=== PATIENT | female | born 1995 | race Caucasian/White ===

== ENCOUNTER 2016-09-14 13:36 | Inpatient (IN) | payer MEDICAID ==
[2016-09-14 14:14] LABS: APPEARANCE,URINE CLOUDY; BILIRUBIN,URINE NEGATIVE (NEGATIVE); GLUCOSE, URINE NEGATIVE (NEGATIVE); KETONES,URINE NEGATIVE (NEGATIVE); LEUKOCYTE ESTERASE,URINE SMALL (NEGATIVE); NITRITE,URINE NEGATIVE (NEGATIVE); PROTEIN,URINE 100 mg/dL (NEGATIVE); URINE SPECIFIC GRAVITY 1.013; UROBILINOGEN,URINE NEGATIVE mg/dL (<2.0)
[2016-09-14 14:38] LABS: URINE BARBITURATES SCREEN NEGATIVE; URINE METHADONE SCREEN NEGATIVE; URINE OPIATES LOW NEGATIVE; URINE PHENCYCLIDINE SCREEN NEGATIVE
[2016-09-14] MEDS ORDERED: RINGERS SOLUTION,LACTATED 1,000 ML IV PRN (15:27)
--- NOTE | 2016-09-14 16:00 | L&D Flow Sheet ---
LD Flowsheet Datetime Report Generated by CPN: 09/14/2016 16:00 Datetime: 09/14/2016 15:44 Pulse: 87 (QS system process) SpO2 (%): 99 (QS system process) Datetime: 09/14/2016 15:39 Pulse: 102 (QS system process) SpO2 (%): 97 (QS system process) Datetime: 09/14/2016 15:37 NBP Sys/Letty/Mean (mmHg): 90 (QS system process) : 53 (QS system process) : 65 (QS system process) Pulse: 90 (QS system process) IV/Blood Work: IV Started; IV Bolus Started; New IV Bag Hung (Annotations: #18 jelco in Rt FA with LR @ W?O rate for IVF bolus) (Lor Knight RN) Datetime: 09/14/2016 15:34 Pulse: 93 (QS system process) SpO2 (%): 96 (QS system process) Datetime: 09/14/2016 15:32 Monitor Interventions for UA: [place] Adjusted (Eunice Vitrano, RN) Patient Position/Activity: Right Lateral (Eunice Vitrano, RN) Datetime: 09/14/2016 15:30 Monitor Interventions for FHR: Ultrasound Adjusted (Eunice Vitrano, RN) Actions for Decelerations: Side to Side (Eunice Vitrano, RN) Communication: RN at Bedside (Eunice Vitrano, RN) Datetime: 09/14/2016 15:25 Comments: pt sitting up in bed, FHR monitor tracing maternal HR (Marcelle Kaia, RN) Datetime: 09/14/2016 15:24 Communication Comments: C.Kulkarni CNM called and informed of pt complaint, G's and P's, gestational age, SVE exam and vital signs. Order recieved to admit pt to labor and delivery (Marcelle Marti, RN) Datetime: 09/14/2016 15:22 NBP Sys/Letty/Mean (mmHg): 122 (QS system process) : 64 (QS system process) : 81 (QS system process) Pulse: 101 (QS system process) Datetime: 09/14/2016 15:21 Dilatation (cm): 5.5 (Marcelle Marti, JENNIFER) Effacement (%): 80 (Marcelle Marti RN) Station: -1 (Marcelle Marti, RN) Exam by: Justin Marti RN (Marcelle Marti, RN) Datetime: 09/14/2016 15:07 NBP Sys/Letty/Mean (mmHg): 104 (QS system process) : 55 (QS system process) : 75 (QS system process) Pulse: 86 (QS system process) Datetime: 09/14/2016 14:51 NBP Sys/Letty/Mean (mmHg): 101 (QS system process) : 61 (QS system process) : 75 (QS system process) Pulse: 100 (QS system process) Datetime: 09/14/2016 14:36 NBP Sys/Letty/Mean (mmHg): 94 (QS system process) : 51 (QS system process) : 66 (QS system process) Pulse: 99 (QS system process) Datetime: 09/14/2016 14:30 Vaginal Exam Comments: alec pad applied (Marcelle Marti RN) Datetime: 09/14/2016 14:15 Frequency (min): every 2 minutes (Marcelle Marti RN) Pain Scale: 4 (Marcelle Marti RN) Pain Presence: Intermittent (Marcelle Marti RN) Pain Type: Contraction (Marcelle Marti RN) Pain Location: Abdomen (Marcelle Marti RN) Pain Relief Measures: Comfort Measures (Marcelle Marti RN) Pain Coping: Breathing Through Contractions (Marcelle Marti RN) Dilatation (cm): 3.5 (Marcelle Marti RN) Effacement (%): 70 (Marcelle Marti RN) Station: -1 (Marcelle Marti RN) Exam by: Justin Marti RN (Marcelle Marti RN) Vaginal Bleeding: Moderate (Marcelle Marti RN) Level of Consciousness: Fully Conscious (Marcelle Marti RN) Headache: Denies (Marcelle Marti RN) Breath Sounds, Left: Clear and Equal (Marcelle Marti RN) Breath Sounds, Right: Clear and Equal (Marcelle Marti RN) Nausea/Vomiting: Denies (Marcelle Marti RN) RUQ Epigastric Pain: Denies (Marcelle Marti RN) Datetime: 09/14/2016 14:09 NBP Sys/Ltety/Mean (mmHg): 97 (QS system process) : 56 (QS system process) : 72 (QS system process) Pulse: 115 (QS system process)
[2016-09-14 16:12] LABS: ABSOLUTE LYMPHOCYTES (AUTO) 1.3 10^3/uL (0.5-4.7); ABSOLUTE MONOCYTES (AUTO) 1.3 10^3/uL (0.1-1.4); ABSOLUTE NEUT (AUTO) 10.3 10^3/uL (1.7-8.2); BASOPHILS % (AUTO) 0.1 % (0-2); EOSINOPHILS % (AUTO) 0.4 % (0-6); LYMPHOCYTES % (AUTO) 10.1 % (13-45); MEAN CORPUSCULAR HEMOGLOBIN 31.6 pg (27.0-33.4); MEAN CORPUSCULAR HGB CONC 33.2 g/dL (32.0-36.0); MEAN CORPUSCULAR VOLUME 95 fl (80-97); MONOCYTES % (AUTO) 10.1 % (3-13); RED CELL DISTRIBUTION WIDTH 13.2 % (11.5-14.0); SEGMENTED NEUTROPHILS % (AUTO) 79.3 % (42-78)
[2016-09-14] MEDS ORDERED: EPHEDRINE SULFATE INJ 50 MG/1 ML AMPULE ONE (16:52)
[2016-09-14] MEDS ORDERED: FENTANYL/BUPIVACAINE/NS/PF 200 MCG/100 ML RTUINJ EPI ONE (16:53)
[2016-09-14] MEDS ORDERED: BUPIVACAINE HCL 0.25 % INJ/PF (2.5 MG/1 ML) 30 ML VIAL ONE (16:53)
--- NOTE | 2016-09-14 17:49 | L&D Progress Notes ---
PROGRESS NOTES Datetime Report Generated by CPN: 09/14/2016 17:49 PROGRESS NOTE Impression: Normal Progression of Labor Procedures: Artificial ROM Plan: Continue Present Management Comment: expectant management MEMBRANES Membranes: Intact FETUS A FHR Category: Category I Presentation: Vertex SIGNATURE SIGNATURE: [id number] Signature: with User ID: [email or web address]
--- NOTE | 2016-09-14 18:00 | L&D Flow Sheet ---
LD Flowsheet Datetime Report Generated by CPN: 09/14/2016 18:00 Datetime: 09/14/2016 17:59 NBP Sys/Letty/Mean (mmHg): 115 (QS system process) : 58 (QS system process) : 80 (QS system process) Pulse: 103 (QS system process) LaborFlag: Antepartum (QS system process) Datetime: 09/14/2016 17:55 Pulse: 103 (QS system process) SpO2 (%): 98 (QS system process) LaborFlag: Antepartum (QS system process) Datetime: 09/14/2016 17:54 Pulse: 86 (QS system process) SpO2 (%): 94 (QS system process) LaborFlag: Antepartum (QS system process) Datetime: 09/14/2016 17:50 Pulse: 87 (QS system process) SpO2 (%): 97 (QS system process) LaborFlag: Antepartum (QS system process) Datetime: 09/14/2016 17:47 Pulse: 85 (QS system process) SpO2 (%): 93 (QS system process) LaborFlag: Antepartum (QS system process) Datetime: 09/14/2016 17:46 Pain Scale: 0 (Marcelle Kaia, RN) Pain Assessment Comments: pt resting in bed, texting on phone in no current distress (Marcelle Kaia, RN) LaborFlag: Antepartum (QS system process) Datetime: 09/14/2016 17:45 Pulse: 107 (QS system process) SpO2 (%): 97 (QS system process) LaborFlag: Antepartum (QS system process) Datetime: 09/14/2016 17:43 NBP Sys/Letty/Mean (mmHg): 126 (QS system process) : 66 (QS system process) : 88 (QS system process) Pulse: 104 (QS system process) Dilatation (cm): 8.5 (Marcelle Kaia, RN) Effacement (%): 100 (Marcelle Marti, RN) Station: 1 (Marcelle Marti, RN) Exam by: Dr. Castro (Marcelle Marti, RN) Membrane Status: Ruptured (Marcelle Marti, RN) Membranes Rupture Method: Artificial (Marcelle Marti, RN) Amniotic Fluid Color: Clear (Marcelle Kaia, RN) Amniotic Fluid Amount: Moderate (Marcelle Kaia, RN) Amniotic Fluid Odor: Normal (Marcelle Kaia, RN) LaborFlag: Antepartum (QS system process) Datetime: 09/14/2016 17:40 Pulse: 89 (QS system process) SpO2 (%): 97 (QS system process) LaborFlag: Antepartum (QS system process) Datetime: 09/14/2016 17:39 NBP Sys/Letty/Mean (mmHg): 121 (QS system process) : 63 (QS system process) : 85 (QS system process) Pulse: 92 (QS system process) LaborFlag: Antepartum (QS system process) Datetime: 09/14/2016 17:35 Pulse: 86 (QS system process) SpO2 (%): 97 (QS system process) LaborFlag: Antepartum (QS system process) Datetime: 09/14/2016 17:33 NBP Sys/Letty/Mean (mmHg): 122 (QS system process) : 59 (QS system process) : 83 (QS system process) Pulse: 86 (QS system process) LaborFlag: Antepartum (QS system process) Datetime: 09/14/2016 17:30 Pulse: 86 (QS system process) SpO2 (%): 96 (QS system process) Temperature (F): 98.2 (Marcelle Kaia, RN) Temperature (C): 36.8 (QS system process) Monitor Mode: External (Marcelle Kaia, RN) Frequency (min): 2-4 (Marcelle Kaia, RN) Quality: Moderate to Strong (Marcelle Kaia, RN) Duration (sec): 50-90 (Marcelle Kaia, RN) Resting Tone (Palpate): Relaxed (Marcelle Kaia, RN) Monitor Mode: External US (Marcelle Kaia, RN) FHR Baseline Rate : 115 (Marcelle Kaia, RN) Variability: Minimal - Undetectable to <=5 bpm (Marcelle Kaia, RN) Accelerations: None (Marcelle Kaia, RN) Decelerations: None (Marcelle Kaia, RN) LaborFlag: Antepartum (QS system process) Datetime: 09/14/2016 17:28 Pulse: 85 (QS system process) SpO2 (%): 93 (QS system process) LaborFlag: Antepartum (QS system process) Datetime: 09/14/2016 17:26 NBP Sys/Letty/Mean (mmHg): 114 (QS system process) : 82 (QS system process) : 94 (QS system process) Pulse: 65 (QS system process) LaborFlag: Antepartum (QS system process) Datetime: 09/14/2016 17:25 NBP Sys/Letty/Mean (mmHg): 116 (QS system process) : 70 (QS system process) : 86 (QS system process) Pulse: 75 (QS system process) Pulse: 78 (QS system process) SpO2 (%): 97 (QS system process) Dilatation (cm): 9.0 (Marcelle Marti RN) Effacement (%): 100 (Marcelle Marti RN) Station: 0 (Marcelle Marti RN) Exam by: A Kaia CNM (Marcelle Marti RN) Vaginal Bleeding: Normal Show (Marcelle Marti RN) LaborFlag: Antepartum (QS system process) Datetime: 09/14/2016 17:24 NBP Sys/Letty/Mean (mmHg): 115 (QS system process) : 70 (QS system process) : 86 (QS system process) Pulse: 83 (QS system process) I/O Interventions: Cisneros Cath Inserted (Marcelle Marti RN) LaborFlag: Antepartum (QS system process) Datetime: 09/14/2016 17:23 NBP Sys/Letty/Mean (mmHg): 109 (QS system process) : 62 (QS system process) : 81 (QS system process) Pulse: 59 (QS system process) Anesthesia Interventions Other: Ephedrine (Marcelle Marti RN) Anesthesia Comments: 5mg (Marcelle Marti RN) LaborFlag: Antepartum (QS system process) Datetime: 09/14/2016 17:22 NBP Sys/Letty/Mean (mmHg): 108 (QS system process) : 55 (QS system process) : 78 (QS system process) Pulse: 76 (QS system process) Patient Position/Activity: Left Lateral (Marcelle Marti RN) LaborFlag: Antepartum (QS system process) Datetime: 09/14/2016 17:21 NBP Sys/Letty/Mean (mmHg): 101 (QS system process) : 51 (QS system process) : 72 (QS system process) Pulse: 86 (QS system process) Anesthesia Interventions Other: Ephedrine (Marcelle Marti RN) Anesthesia Comments: 5mg (Marcelle Marti RN) LaborFlag: Antepartum (QS system process) Datetime: 09/14/2016 17:20 NBP Sys/Letty/Mean (mmHg): 87 (QS system process) : 52 (QS system process) : 64 (QS system process) Pulse: 96 (QS system process) Pulse: 91 (QS system process) SpO2 (%): 96 (QS system process) LaborFlag: Antepartum (QS system process) Datetime: 09/14/2016 17:19 Patient Position/Activity: Right Tilt (Marcelle Kaia, RN) Datetime: 09/14/2016 17:18 NBP Sys/Letty/Mean (mmHg): 85 (QS system process) NBP Sys/Letty/Mean (mmHg): 97 (QS system process) : 49 (QS system process) : 54 (QS system process) : 65 (QS system process) : 71 (QS system process) Pulse: 89 (QS system process) Pulse: 85 (QS system process) LaborFlag: Antepartum (QS system process) Datetime: 09/14/2016 17:16 NBP Sys/Letty/Mean (mmHg): 99 (QS system process) : 55 (QS system process) : 71 (QS system process) Pulse: 84 (QS system process) Comments: RN at bedside adjusting monitors (Marcelle Marti RN) Patient Position/Activity: Left Tilt (Marcelle Marti RN) LaborFlag: Antepartum (QS system process) Datetime: 09/14/2016 17:15 Monitor Mode: External; Palpation (Marcelle Marti RN) Frequency (min): 3-4 (Marcelle Marti RN) Quality: Moderate to Strong (Marcelle Marti RN) Duration (sec): 50-90 (Marcelle Marti, RN) Resting Tone (Palpate): Relaxed (Marcelle Marti RN) Comments: unable to determine due to pt position for epidural placement (Marcelle Marti RN) Datetime: 09/14/2016 17:14 NBP Sys/Letty/Mean (mmHg): 105 (QS system process) : 59 (QS system process) : 78 (QS system process) Pulse: 86 (QS system process) LaborFlag: Antepartum (QS system process) Datetime: 09/14/2016 17:13 NBP Sys/Letty/Mean (mmHg): 107 (QS system process) : 59 (QS system process) : 78 (QS system process) Pulse: 89 (QS system process) Pulse: 90 (QS system process) SpO2 (%): 99 (QS system process) LaborFlag: Antepartum (QS system process) Datetime: 09/14/2016 17:12 NBP Sys/Letty/Mean (mmHg): 109 (QS system process) : 58 (QS system process) : 75 (QS system process) Pulse: 105 (QS system process) LaborFlag: Antepartum (QS system process) Datetime: 09/14/2016 17:11 NBP Sys/Letty/Mean (mmHg): 91 (QS system process) : 47 (QS system process) : 67 (QS system process) Pulse: 87 (QS system process) LaborFlag: Antepartum (QS system process) Datetime: 09/14/2016 17:10 NBP Sys/Letty/Mean (mmHg): 101 (QS system process) : 54 (QS system process) : 73 (QS system process) Pulse: 87 (QS system process) LaborFlag: Antepartum (QS system process) Datetime: 09/14/2016 17:09 NBP Sys/Letty/Mean (mmHg): 115 (QS system process) : 58 (QS system process) : 80 (QS system process) Pulse: 89 (QS system process) Epidural Procedure: Cath Placed (Marcelle Marti RN) LaborFlag: Antepartum (QS system process) Datetime: 09/14/2016 17:08 Pulse: 111 (QS system process) SpO2 (%): 99 (QS system process) Procedure Verify: Correct Patient Identity; Correct Side and Site are Marked; Accurate Procedure Consent Form; Agreement on Procedure to be Done; Correct Patient Position (Marcelle Marti RN) Anesthesia Plans: Epidural (Marcelle Marti RN) Epidural Positioning: Sitting (Marcelle Marti RN) Epidural Procedure: Test Dose (Marcelle Marti RN) LaborFlag: Antepartum (QS system process) Datetime: 09/14/2016 17:06 NBP Sys/Letty/Mean (mmHg): 122 (QS system process) : 66 (QS system process) : 89 (QS system process) Pulse: 97 (QS system process) LaborFlag: Antepartum (QS system process) Datetime: 09/14/2016 17:03 Pulse: 93 (QS system process) SpO2 (%): 99 (QS system process) LaborFlag: Antepartum (QS system process) Datetime: 09/14/2016 17:00 Monitor Mode: External; Palpation (Marcelle Kaia, RN) Frequency (min): 2-3 (Marcelle Kaia, RN) Quality: Moderate (Marcelle Kaia, RN) Duration (sec): 60-90 (Marcelle Kaia, RN) Resting Tone (Palpate): Relaxed (Marcelle Kaia, RN) Monitor Mode: External US (Marcelle Kaia, RN) FHR Baseline Rate : 115 (Marcelle Kaia, RN) Variability: Moderate 6-25 bpm (Marcelle Kaia, RN) Accelerations: 15X15 (Marcelle Kaia, RN) Decelerations: None (Marcelle Kaia, RN) Datetime: 09/14/2016 16:58 Pulse: 110 (QS system process) SpO2 (%): 100 (QS system process) LaborFlag: Antepartum (QS system process) Datetime: 09/14/2016 16:57 Procedure Verify: Correct Patient Identity (Marcelle Marti RN) Anesthesia Plans: Epidural (Marcelle Marti RN) Epidural Positioning: Sitting (Marcelle Marti RN) Anesthesia Comments: Dr. Bautista at bedside (Marcelle Marti RN) Datetime: 09/14/2016 16:52 Pulse: 104 (QS system process) SpO2 (%): 97 (QS system process) LaborFlag: Antepartum (QS system process) Datetime: 09/14/2016 16:47 Pulse: 95 (QS system process) SpO2 (%): 97 (QS system process) LaborFlag: Antepartum (QS system process) Datetime: 09/14/2016 16:46 Procedure Verify: Correct Patient Identity (Marcelle Marti RN) Anesthesia Plans: Epidural (Marcelle Marti RN) Datetime: 09/14/2016 16:45 Pain Scale: 5 (Marcelle Marti RN) Pain Presence: Intermittent (Marcelle Marti RN) Pain Type: Contraction (Marcelle Marti RN) Pain Location: Abdomen (Marcelle Marti RN) Pain Relief Measures: Comfort Measures (Marcelle Marti RN) Pain Assessment Comments: pt requesting epidural, order from Ruddy Kulkarni recieved for pt to have epidural (Marcelle Marti RN) Comfort Measures: Breathing/Relaxation; Back Rub Given (Marcelle Marti RN) LaborFlag: Antepartum (QS system process) Datetime: 09/14/2016 16:42 Pulse: 95 (QS system process) SpO2 (%): 100 (QS system process) LaborFlag: Antepartum (QS system process) Datetime: 09/14/2016 16:38 Communication: RN at Bedside (Marcelle Kaia, RN) Datetime: 09/14/2016 16:37 Pulse: 54 (QS system process) SpO2 (%): 77 (QS system process) SpO2 (%): 81 (QS system process) LaborFlag: Antepartum (QS system process) Datetime: 09/14/2016 16:31 Communication: RN at Bedside (Marcelle Kaia, RN) Datetime: 09/14/2016 16:30 Monitor Mode: External (Marcelle Kaia, RN) Frequency (min): 1-3 (Marcelle Kaia, RN) Quality: Moderate (Marcelle Kaia, RN) Duration (sec): 40-80 (Marcelle Kaia, RN) Resting Tone (Palpate): Relaxed (Marcelle Kaia, RN) Monitor Mode: External US (Marcelle Kaia, RN) FHR Baseline Rate : 115 (Marcelle Kaia, RN) Variability: Moderate 6-25 bpm (Marcelle Kaia, RN) Accelerations: 15X15 (Marcelle Kaia, RN) Decelerations: Variable (Marcelle Kaia, RN) Datetime: 09/14/2016 16:25 Patient Care Comments: pt standing on the side of the bed rocking back and forth (Marcelle Kaia, RN) Datetime: 09/14/2016 16:23 I/O Interventions: Up to BR (Marcelle Kaia, RN) Datetime: 09/14/2016 16:21 Pulse: 102 (QS system process) SpO2 (%): 99 (QS system process) LaborFlag: Antepartum (QS system process) Datetime: 09/14/2016 16:17 Communication Comments: C. Kulkarni CNM at bedside (Marcelle Kaia, RN) Datetime: 09/14/2016 16:16 Pulse: 113 (QS system process) SpO2 (%): 98 (QS system process) LaborFlag: Antepartum (QS system process) Datetime: 09/14/2016 16:06 NBP Sys/Letty/Mean (mmHg): 125 (QS system process) : 69 (QS system process) : 92 (QS system process) Pulse: 88 (QS system process) LaborFlag: Antepartum (QS system process) Datetime: 09/14/2016 16:00 Monitor Mode: External; Palpation (Marcelle Kaia, RN) Frequency (min): 1-3 (Marcelle Kaia, RN) Quality: Moderate (Marcelle Kaia, RN) Duration (sec): 60-80 (Marcelle Kaia, RN) Resting Tone (Palpate): Relaxed (Marcelle Kaia, RN) Monitor Mode: External US (Marcelle Kaia, RN) FHR Baseline Rate : 120 (Marcelle Kaia, RN) Variability: Moderate 6-25 bpm (Marcelle Kaia, RN) Accelerations: 15X15 (Marcelle Kaia, RN) Decelerations: None (Marcelle Kaia, RN)
[2016-09-14] MEDS ORDERED: LIDOCAINE 1% INJ-PF (10 MG/ML) 30 ML SDV ONE (18:20)
[2016-09-14] MEDS ORDERED: OXYTOCIN/NORMAL SALINE 20 UNIT/1,000 ML RTUINJ ONE (18:20)
[2016-09-14] MEDS ORDERED: MISOPROSTOL 0.2 MG TABLET ONE (18:20)
--- NOTE | 2016-09-14 20:00 | L&D Flow Sheet ---
LD Flowsheet Datetime Report Generated by CPN: 09/14/2016 20:00 Datetime: 09/14/2016 19:43 Stage of : Recovery (Brittani Gonzalo, RN) Datetime: 09/14/2016 19:38 Stage 2 Comments: oxygen applied. left lateral tilt (Claribel Bonifacio, RN) Datetime: 09/14/2016 19:29 NBP Sys/Letty/Mean (mmHg): 127 (QS system process) : 62 (QS system process) : 84 (QS system process) Pulse: 106 (QS system process) LaborFlag: Antepartum (QS system process) Datetime: 09/14/2016 19:23 Patient Position/Activity: Left Extreme (Claribel Bonifacio, RN) Stage 2 Comments: pt. set up fopr delivery (Claribel Bonifacio, RN) Datetime: 09/14/2016 19:20 Dilatation (cm): 10.0 (Claribel Bonifacio, RN) Effacement (%): 100 (Claribel Bonifacio, RN) Station: 1 (Claribel Bonifacio, RN) Exam by: Aneesh (Claribel Bonifacio, RN) Datetime: 09/14/2016 19:19 Communication Comments: aneesh at bedside (Claribel Obnifacio, RN) Datetime: 09/14/2016 19:14 NBP Sys/Letty/Mean (mmHg): 115 (QS system process) : 67 (QS system process) : 86 (QS system process) Pulse: 96 (QS system process) LaborFlag: Antepartum (QS system process) Datetime: 09/14/2016 19:00 Monitor Mode: External; Palpation (Marcelle Kaia, RN) Frequency (min): 1-2 (Marcelle Kaia, RN) Quality: Strong (Marcelle Kaia, RN) Duration (sec): 50-90 (Marcelle Kaia, RN) Resting Tone (Palpate): Relaxed (Marcelle Kaia, RN) Comments: underterminate baseline (Marcelle Kaia, RN) Datetime: 09/14/2016 18:58 NBP Sys/Letty/Mean (mmHg): 108 (QS system process) : 63 (QS system process) : 81 (QS system process) Pulse: 76 (QS system process) LaborFlag: Antepartum (QS system process) Datetime: 09/14/2016 18:49 Temperature (F): 98.3 (Marcelle Kaia, RN) Temperature (C): 36.8 (QS system process) LaborFlag: Antepartum (QS system process) Datetime: 09/14/2016 18:45 Monitor Mode: External; Palpation (Marcelle Kaia, RN) Frequency (min): 1-2 (Marcelle Kaia, RN) Quality: Strong (Marcelle Kaia, RN) Duration (sec): 60-90 (Marcelle Kaia, RN) Resting Tone (Palpate): Relaxed (Marcelle Kaia, RN) Monitor Mode: External US (Marcelle Kaia, RN) FHR Baseline Rate : 115 (Marcelle Kaia, RN) Variability: Moderate 6-25 bpm (Marcelle Kaia, RN) Accelerations: None (Marcelle Kaia, RN) Decelerations: Early (Marcelle Kaia, RN) Datetime: 09/14/2016 18:44 NBP Sys/Letty/Mean (mmHg): 98 (QS system process) : 66 (QS system process) : 76 (QS system process) Pulse: 117 (QS system process) LaborFlag: Antepartum (QS system process) Datetime: 09/14/2016 18:29 NBP Sys/Letty/Mean (mmHg): 109 (QS system process) : 67 (QS system process) : 82 (QS system process) Pulse: 110 (QS system process) LaborFlag: Antepartum (QS system process) Datetime: 09/14/2016 18:24 Patient Position/Activity: Tailors (Marcelle Marti RN) Datetime: 09/14/2016 18:22 Pulse: 111 (QS system process) SpO2 (%): 94 (QS system process) Dilatation (cm): 9.0 (Marcelle Marti RN) Effacement (%): 100 (Marcelle Marti RN) Station: 1 (Marcelle Marti RN) Exam by: Dr. Castro (Marcelle Marti, RN) LaborFlag: Antepartum (QS system process) Datetime: 09/14/2016 18:20 Pulse: 82 (QS system process) SpO2 (%): 97 (QS system process) LaborFlag: Antepartum (QS system process) Datetime: 09/14/2016 18:16 Pulse: 92 (QS system process) SpO2 (%): 94 (QS system process) LaborFlag: Antepartum (QS system process) Datetime: 09/14/2016 18:15 Pulse: 105 (QS system process) SpO2 (%): 98 (QS system process) LaborFlag: Antepartum (QS system process) Datetime: 09/14/2016 18:13 NBP Sys/Letty/Mean (mmHg): 115 (QS system process) : 64 (QS system process) : 83 (QS system process) Pulse: 101 (QS system process) LaborFlag: Antepartum (QS system process) Datetime: 09/14/2016 18:10 Pulse: 99 (QS system process) SpO2 (%): 96 (QS system process) LaborFlag: Antepartum (QS system process) Datetime: 09/14/2016 18:05 Pulse: 101 (QS system process) SpO2 (%): 97 (QS system process) LaborFlag: Antepartum (QS system process) Datetime: 09/14/2016 18:00 Pulse: 100 (QS system process) SpO2 (%): 96 (QS system process) Monitor Mode: External; Palpation (Marcelle Kaia, RN) Frequency (min): 2 (Marcelle Kaia, RN) Quality: Strong (Marcelle Kaia, RN) Duration (sec): 50-80 (Marcelle Kaia, RN) Resting Tone (Palpate): Relaxed (Marcelle Kaia, RN) Monitor Mode: External US (Marcelle Kaia, RN) FHR Baseline Rate : 120 (Marcelle Kaia, RN) Variability: Moderate 6-25 bpm (Marcelle Kaia, RN) Accelerations: 15X15 (Marcelle Kaia, RN) Decelerations: Variable (Marcelle Kaia, RN) LaborFlag: Antepartum (QS system process)
[2016-09-14] MEDS ORDERED: ACETAMINOPHEN WITH CODEINE #3 TABLET PO PRN ×2 (21:15)
[2016-09-14] MEDS ORDERED: DIPH/PERTUSS(ACELL)/TETANUS VAC/PF 0.5 ML SYR (>=10YO) IM PRN (21:15)
[2016-09-14] MEDS ORDERED: ZOLPIDEM TARTRATE 5 MG TABLET PO PRN (21:15)
[2016-09-14] MEDS ORDERED: BENZOCAINE/MENTHOL AEROSOL SPRAY 56 ML TOP PRN (21:15)
[2016-09-14] MEDS ORDERED: DIBUCAINE 1% OINTMENT 28 GM TP PRN (21:15)
[2016-09-14] MEDS ORDERED: MEASLES,MUMPS&RUBELLA VACC/PF 0.5 ML VIAL SUBCUT PRN (21:15)
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
[2016-09-14] MEDS: IBUPROFEN 800 MG TABLET PO SCH (22:44)
[2016-09-14] MEDS ORDERED: INFLUENZA ADLT QUAD (36MOS+) 2016-17 VAC 0.5 ML SYR IM PRN (22:56)
[2016-09-15] MEDS: IBUPROFEN 800 MG TABLET PO SCH ×3 (05:23→22:10)
--- NOTE | 2016-09-15 07:00 | L&D Flow Sheet ---
LD Flowsheet Datetime Report Generated by CPN: 09/15/2016 07:00 Datetime: 09/14/2016 21:48 NBP Sys/Letty/Mean (mmHg): 104/69 (Claribel Bonifacio, RN) Pulse: 98 (Claribel Bonifacio, RN) Respirations: 12 (Claribel Bonifacio, RN) Temperature (F): 98.0 (Claribel Bonifacio, RN) Temperature (C): 36.7 (QS system process) Datetime: 09/14/2016 21:45 Stage of : Recovery (Claribel Bonifacio, RN) Pain Scale: 0 (Claribel Bonifacio, RN) Pain Presence: None/Denies (Claribel Bonifacio, RN) Pain Type: N/A (Claribel Bonifacio, RN) Datetime: 09/14/2016 21:43 NBP Sys/Letty/Mean (mmHg): 107 (QS system process) : 61 (QS system process) : 79 (QS system process) Pulse: 87 (QS system process) Datetime: 09/14/2016 21:30 Stage of : Recovery (Claribel Bonifacio, RN) Pain Scale: 0 (Claribel Bonifacio, RN) Pain Presence: None/Denies (Claribel Bonifacio, RN) Pain Type: N/A (Claribel Bonifacio, RN) Datetime: 09/14/2016 21:28 NBP Sys/Letty/Mean (mmHg): 109 (QS system process) : 61 (QS system process) : 79 (QS system process) Pulse: 83 (QS system process) Datetime: 09/14/2016 21:15 Stage of : Recovery (Claribel Bonifacio, RN) Pain Scale: 0 (Claribel Bonifacio, RN) Pain Presence: None/Denies (Claribel Bonifacio, RN) Pain Type: N/A (Claribel Bonifacio, RN) Datetime: 09/14/2016 21:13 NBP Sys/Letty/Mean (mmHg): 110 (QS system process) : 58 (QS system process) : 78 (QS system process) Pulse: 79 (QS system process) Datetime: 09/14/2016 21:00 Stage of : Recovery (Claribel Bonifacio, RN) Pain Scale: 0 (Claribel Bonifacio, RN) Pain Presence: None/Denies (Claribel Bonifacio, RN) Pain Type: N/A (Claribel Bonifacio, RN) Datetime: 09/14/2016 20:58 NBP Sys/Letty/Mean (mmHg): 111 (QS system process) : 57 (QS system process) : 77 (QS system process) Pulse: 73 (QS system process) Datetime: 09/14/2016 20:45 Pain Scale: 0 (Claribel Bonifacio, RN) Pain Presence: None/Denies (Claribel Bonifacio, RN) Pain Type: N/A (Claribel Bonifacio, RN) Datetime: 09/14/2016 20:30 Pain Scale: 0 (Claribel Bonifacio, RN) Pain Presence: None/Denies (Claribel Bonifacio, RN) Pain Type: N/A (Claribel Bonifacio, RN) Datetime: 09/14/2016 20:28 NBP Sys/Letty/Mean (mmHg): 92 (QS system process) : 56 (QS system process) : 68 (QS system process) Pulse: 96 (QS system process) Datetime: 09/14/2016 20:15 Stage of : Recovery (Claribel Bonifacio, RN) Pain Scale: 0 (Claribel Bonifacio, RN) Pain Presence: None/Denies (Claribel Bonifacio, RN) Pain Type: N/A (Claribel Bonifacio, RN) Datetime: 09/14/2016 20:13 NBP Sys/Letty/Mean (mmHg): 98 (QS system process) : 55 (QS system process) : 67 (QS system process) Pulse: 112 (QS system process) Datetime: 09/14/2016 20:07 NBP Sys/Letty/Mean (mmHg): 99 (QS system process) : 51 (QS system process) : 71 (QS system process) Pulse: 101 (QS system process) Temperature (F): 98.0 (Claribel Bonifacio, RN) Temperature (C): 36.7 (QS system process) Temperature Route: Oral (Claribel Bonifacio, RN) Datetime: 09/14/2016 20:00 Pain Scale: 0 (Claribel Bonifacio, RN) Pain Presence: None/Denies (Claribel Bonifacio, RN) Pain Type: N/A (Claribel Bonifacio, RN) Datetime: 09/14/2016 19:45 Stage of : Recovery (Claribel Bonifacio, RN) Datetime: 09/14/2016 19:43 Stage of : Recovery (Brittani Sánchez RN) Stage 2 Comments: nursery at bedside for assessment (Claribel Valdovinos, RN) Datetime: 09/14/2016 19:42 Monitor Mode: External; Palpation (Claribel Bonifacio, RN) Frequency (min): 1.5-3 (Claribel Bonifacio, RN) Quality: Moderate to Strong (Claribel Bonifacio, RN) Duration (sec): 30-60 (Claribel Bonifacio, RN) Duration Criteria: Less than Two 120 Second Contractions (Claribel Bonifacio, RN) Pattern: Normal: <= 5 Contractions in 10 Minutes (Claribel Bonifacio, RN) Resting Tone (Palpate): Relaxed (Claribel Bonifacio, RN) Monitor Mode: External US (Claribel Bonifacio, RN) Variability: Moderate 6-25 bpm (Claribel Bonifacio, RN) Accelerations: 15X15 (Claribel Bonifacio, RN) Decelerations: Variable (Claribel Bonifacio, RN) Comments: unable to determine baseline (Claribel Bonifacio, RN) Stage 2 Comments: Delivery of viable babygirl dried and stimulated (Claribel Bonifacio, RN) Datetime: 09/14/2016 19:38 Pushing Progress: Descent with Pushing (Claribel Bonifacio, RN) Stage 2 Comments: oxygen applied. left lateral tilt (Claribel Bonifacio, RN) Datetime: 09/14/2016 19:30 Monitor Mode: External; Palpation (Claribel Bonifacio, RN) Frequency (min): 1.5-3 (Claribel Bonifacio, RN) Quality: Moderate to Strong (Claribel Bonifacio, RN) Duration (sec): 50-90 (Claribel Bonifacio, RN) Duration Criteria: Less than Two 120 Second Contractions (Claribel Bonifacio, RN) Pattern: Normal: <= 5 Contractions in 10 Minutes (Claribel Bonifacio, RN) Resting Tone (Palpate): Relaxed (Claribel Bonifacio, RN) Monitor Mode: External US (Claribel Bonifacio, RN) FHR Baseline Rate : 125 (Claribel Bonifacio, RN) Variability: Moderate 6-25 bpm (Claribel Bonifacio, RN) Accelerations: 15X15 (Claribel Bonifacio, RN) Decelerations: Variable (Claribel Bonifacio, RN) Comments: variable decel to 75. RN remains at bedside adjusting U/S continously monitoring FHT (Claribel Bonifacio, RN) Datetime: 09/14/2016 19:29 NBP Sys/Letty/Mean (mmHg): 127 (QS system process) : 62 (QS system process) : 84 (QS system process) Pulse: 106 (QS system process) LaborFlag: Antepartum (QS system process) Datetime: 09/14/2016 19:26 Pushing: Coached on Pushing; Urge to Push (Claribel Bonifacio, RN) Pushing Position: Pushing with Contractions; Pushing Left Side (Claribel Bonifacio, RN) Pushing Progress: Descent with Pushing (Claribel Bonifacio, RN) Datetime: 09/14/2016 19:23 Patient Position/Activity: Left Extreme (Claribel Bonifacio, RN) Stage 2 Comments: pt. set up fopr delivery (Claribel Bonifacio, RN) Datetime: 09/14/2016 19:22 IV/Blood Work: New IV Bag Hung (Claribel Bonifacio, RN) Datetime: 09/14/2016 19:21 Stage 2 Comments: Pt. set up for delivery. RN to remain at bedside throughout remainder of the second stage of labor adjusting U/S and continously monitoring FHT (Claribel Bonifacio, RN) Datetime: 09/14/2016 19:20 Dilatation (cm): 10.0 (Claribel Bonifacio, RN) Effacement (%): 100 (Claribel Bonifacio, RN) Station: 1 (Claribel Bonifacio, RN) Exam by: Dr. Melendrez (Claribel Bonifacio, RN) Datetime: 09/14/2016 19:19 Communication Comments: dr. melendrez at bedside (Claribel Bonifacio, RN) Datetime: 09/14/2016 19:15 Monitor Mode: External; Palpation (Claribel Bonifacio, RN) Frequency (min): 1.5-2 (Claribel Bonifacio, RN) Quality: Moderate to Strong (Claribel Bonifacio, RN) Duration (sec): 60-80 (Claribel Bonifacio, RN) Duration Criteria: Less than Two 120 Second Contractions (Claribel Bonifacio, RN) Pattern: Normal: <= 5 Contractions in 10 Minutes (Claribel Bonifacio, RN) Resting Tone (Palpate): Relaxed (Claribel Bonifacio, RN) Monitor Mode: External US (Claribel Bonifacio, RN) FHR Baseline Rate : 125 (Claribel Bonifacio, RN) Variability: Moderate 6-25 bpm (Claribel Bonifacio, RN) Accelerations: 15X15 (Claribel Bonifacio, RN) Decelerations: Early; Variable (Claribel Bonifacio, RN) Datetime: 09/14/2016 19:14 NBP Sys/Letty/Mean (mmHg): 115 (QS system process) : 67 (QS system process) : 86 (QS system process) Pulse: 96 (QS system process) LaborFlag: Antepartum (QS system process) Datetime: 09/14/2016 19:10 Communication Comments: Report received from Justin Bates RN and care assumed at this time (Claribel Bonifacio, RN) Datetime: 09/14/2016 19:00 Monitor Mode: External; Palpation (Marcelle Marti RN) Frequency (min): 1-2 (Marcelle Marti RN) Quality: Strong (Marcelle Marti RN) Duration (sec): 50-90 (Marcelle Marti RN) Resting Tone (Palpate): Relaxed (Marcelle Marti RN) Comments: underterminate baseline (Marcelle Marti RN)
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
[2016-09-15 08:17] LABS: HEMATOCRIT 35.1 % (36.0-47.0); HEMOGLOBIN 11.8 g/dL (12.0-15.5); HGB HCT DIFFERENCE 0.3; MEAN CORPUSCULAR HEMOGLOBIN 31.7 pg (27.0-33.4); MEAN CORPUSCULAR HGB CONC 33.6 g/dL (32.0-36.0); MEAN CORPUSCULAR VOLUME 95 fl (80-97); RED BLOOD COUNT 3.72 10^6/uL (3.72-5.28); RED CELL DISTRIBUTION WIDTH 13.6 % (11.5-14.0); WHITE BLOOD COUNT 13.1 10^3/uL (4.0-10.5)
[2016-09-15] MEDS: DOCUSATE SODIUM 100 MG CAPSULE PO SCH ×2 (10:12→17:59)
[2016-09-15] MEDS: PRENATAL VITAMIN W-O CA NO5/FE FUMARATE/FA CAPSULE PO SCH (10:13)
[2016-09-15] MEDS: FERROUS SULFATE 325 MG TABLET PO SCH ×2 (10:13→17:59)
[2016-09-15] MEDS: SENNOSIDES/DOCUSATE 8.6-50 MG 1 EACH TABLET PO SCH (10:13)
--- NOTE | 2016-09-15 11:33 | PDOC PROGRESS REPORT ---
Subjective-OB Subjective: Post Delivery Day: 20 year old. Denies any needs at this time. Pt doing well, ambulatory, light bleeding, regular diet and voiding well. No concerns. Physical Exam (OB) Vital Signs: Temp Pulse Resp BP Pulse Ox 97.9 F 75 16 104/56 L 99 09/15/16 07:18 09/15/16 07:18 09/15/16 07:18 09/15/16 07:18 09/15/16 07:18 Intake & Output 09/14/16 09/15/16 09/16/16 06:59 06:59 06:59 Weight 66.5 kg - Lochia Lochia Amount: Scant < 10 ml Lochia Color: Rubra/Red - Abdomen Description: Soft Hernia Present: No Fundal Description: Firm Fundal Height: u/u - u/2 Objective-Diagnostic Laboratory: 09/15/16 07:36 09/14/16 09/14/16 09/14/16 13:46 16:00 16:00 WBC 13.0 H RBC 4.10 Hgb 13.0 Hct 39.0 MCV 95 MCH 31.6 MCHC 33.2 RDW 13.2 Plt Count 199 Seg Neutrophils % 79.3 H Lymphocytes % 10.1 L Monocytes % 10.1 Eosinophils % 0.4 Basophils % 0.1 Absolute Neutrophils 10.3 H Absolute Lymphocytes 1.3 Absolute Monocytes 1.3 Absolute Eosinophils 0.0 Absolute Basophils 0.0 Urine Color RED Urine Appearance CLOUDY Urine pH 9.0 Ur Specific Sage 1.013 Urine Protein 100 H Urine Glucose (UA) NEGATIVE Urine Ketones NEGATIVE Urine Blood LARGE H Urine Nitrite NEGATIVE Ur Leukocyte Esterase SMALL H Blood Type A POSITIVE Antibody Screen NEGATIVE 09/15/16 07:36 WBC 13.1 H RBC 3.72 Hgb 11.8 L Hct 35.1 L MCV 95 MCH 31.7 MCHC 33.6 RDW 13.6 Plt Count 180 Seg Neutrophils % Lymphocytes % Monocytes % Eosinophils % Basophils % Absolute Neutrophils Absolute Lymphocytes Absolute Monocytes Absolute Eosinophils Absolute Basophils Urine Color Urine Appearance Urine pH Ur Specific Sage Urine Protein Urine Glucose (UA) Urine Ketones Urine Blood Urine Nitrite Ur Leukocyte Esterase Blood Type Antibody Screen Assessment and Plan(PN) - Assessment and Plan (1) Delivery normal Is this a current diagnosis for this admission?: Yes - Time Spent with Patient Time with patient: Less than 15 minutes Medications reviewed and adjusted accordingly: Yes - Disposition Anticipated Discharge: Home Within: within 24 hours
--- NOTE | 2016-09-15 18:01 | L&D General Admission ---
General Admit Datetime Report Generated by CPN: 09/15/2016 18:00 INFORMATION Patient Age: 20 (08/31/2016 14:00:QS system process) EDC: 09/22/2016 00:00 (09/14/2016 13:52:OLMAN Correa) : 2 (09/14/2016 13:52:Lor Knight RN) Para: 1 (09/14/2016 13:52:Lor Knight RN) Term: 0 (09/14/2016 13:52:Lor Knight RN) : 1 (09/14/2016 13:52:Lor Knight RN) Spontaneous Abortions: 0 (09/14/2016 13:52:Lor Knight RN) Induced Abortions: 0 (09/14/2016 13:52:Lor Knight RN) Livin (09/14/2016 13:52:Lor Knight RN) Cesareans: 0 (09/14/2016 13:52:Lor Knight RN) VBACs: 0 (09/14/2016 13:52:Lor Knight RN) Ectopic: 0 (09/14/2016 13:52:oLr Knight RN) Multiple Births: 0 (09/14/2016 13:52:Lor Knight RN) Baby, Number in Womb: 1 (09/14/2016 13:52:Lor Knight RN) CARE Primary Patient Account Analyst: [facility] (09/14/2016 13:52:Lor Knight RN) Adequate Care: Yes (09/14/2016 13:52:Marcelle Marti RN) Height (in): 65 (09/14/2016 13:48:QS system process) ALLERGIES Medication Allergy: No (09/14/2016 13:52:Marcelle Marti RN) Medication Allergies: No Known Allergies (09/14/2016) (09/14/2016 13:48:QS system process) Latex Allergy: No Latex Allergies (09/14/2016 13:52:Marcelle Marti RN) COMMUNICATION Primary Language: Sinhala (09/14/2016 13:52:Lor Knight RN) Medical Tx Preferred Language: Sinhala (09/14/2016 13:52:Lor Knight RN) Communication Barrier(s): None (09/14/2016 13:52:Lor Knight RN) DEMOGRAPHICS Address: [address] [place] [id number] (08/31/2016 14:00:QS system process) Zipcode: [address] (08/31/2016 14:00:QS system process) Home (08/31/2016 14:00:QS system process) Work (09/14/2016 13:38:QS system process) SSN: [id number] (08/31/2016 14:00:QS system process) Next of Kin Name: DAPHNEY GREEN (08/31/2016 14:00:QS system process) Next of Kin (09/14/2016 13:38:QS system process) Next of Kin Relationship: OR (08/31/2016 14:00:QS system process) Date of : 1995 (08/31/2016 14:00:QS system process) Marital Status: Single (08/31/2016 14:00:QS system process) Sex: Female (08/31/2016 14:00:QS system process) Race: (08/31/2016 14:00:QS system process) Ethnicity: Non- or (08/31/2016 14:00:QS system process) Restorationism: None (08/31/2016 14:00:QS system process) DRUG AND ALCOHOL USE Alcohol: No (09/14/2016 13:52:Marcelle Marti RN) Cigarettes: Never Smoker. 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: [employer] (09/14/2016 13:52:Marcelle Marti RN) Feeding Preference: Breast (09/14/2016 13:52:Marcelle Marti RN) Benefit of Breast Feed Discussed: Yes (09/14/2016 13:52:Marcelle Marti RN) Circumcision: N/A (09/14/2016 13:52:Marcelle Marti RN) Classes Attended: No (09/14/2016 13:52:Marcelle Marti RN) Tubal Ligation: No (09/14/2016 13:52:Marcelle Marti RN) Tubal Authorization Signed: N/A (09/14/2016 13:52:Marcelle Marti RN) Consent: N/A (09/14/2016 13:52:Marcelle Marti RN) Consent Signed: N/A (09/14/2016 13:52:Marcelle Marti RN) Other Pain Management Plans: unsure (09/14/2016 13:52:Marcelle Marti RN) Plans for Labor and Delivery: None (09/14/2016 13:52:Marcelle Marti RN) Support Person: Daphney Mancia (09/14/2016 13:52:Marcelle Marti RN) Support Person Relationship: Significant Other (09/14/2016 13:52:Marcelle Marti RN) Cultural/Spritual Practice: N/A (09/14/2016 13:52:Marcelle Marti RN) Spir/Cult Dietary Needs: N/A (09/14/2016 13:52:Marcelle Marti RN) LIVING SITUATION/DISCHARGE PLAN Living Arrangements: House (09/14/2016 13:52:Marcelle Marti RN) Adequate Access to:: Electric; Heat; Refrigeration; Plumbing/Running water; Phone; Transportation (09/14/2016 13:52:Marcelle Marti RN) WIC Program: No (09/14/2016 13:52:Marcelle Marti RN) Discharge Coil Former Person: Daphney (09/14/2016 13:52:Marcelle Marti RN) Person to Help after Discharge: Daphney (09/14/2016 13:52:Marcelle Marti RN) Currently Using Commun Resources: No (09/14/2016 13:52:Marcelle Marti RN) Outside Agency/Chemical Radiation Technician: No (09/14/2016 13:52:Marcelle Marti RN) Car Seat for Discharge: Yes (09/14/2016 13:52:Marcelle Marti RN) Adoption Requested: No (09/14/2016 13:52:Marcelle Marti RN) Pt Contact w/infant Post : N/A (09/14/2016 13:52:Marcelle Marti RN) LABS Blood Type: A Positive (09/14/2016 13:52:Dat Franco RN) Antibody Screen: Negative (09/14/2016 13:52:Dat Franco RN) Hemoglobin: 11.8 L (09/15/2016 07:36:QS system process) Hematocrit: 35.1 L (09/15/2016 07:36:QS system process) MCV: 95 (09/15/2016 07:36:QS system process) Group Beta Strep: neg (09/14/2016 13:52:Marcelle Marti RN) Gonorrhea: Negative (09/14/2016 13:52:Marcelle Marti RN) Chlamydia: Negative (09/14/2016 13:52:Marcelle Marti RN) RPR/VDRL: Nonreactive (09/14/2016 13:52:Marcelle Marti RN) HIV Exposure Test: neg (09/14/2016 13:52:Marcelle Marti RN) Hepatitis B: Negative (09/14/2016 13:52:Dat Franco RN) Rubella: Immune (09/14/2016 13:52:Dat Franco RN) Varicella: Negative (09/14/2016 13:52:Dat Franco RN) OB/PREVIOUS HISTORY History of Previous : No (09/14/2016 13:52:Marcelle Marti RN) History of Gestational Diabetes: No (09/14/2016 13:52:Marcelle Marti RN) History of PIH: No (09/14/2016 13:52:Marcelle Marti RN) History of Incompetent Cervix: No (09/14/2016 13:52:Marcelle Marti RN) History of Placenta Previa/Abrup: No (09/14/2016 13:52:Marcelle Marti RN) History of Macrosomia: No (09/14/2016 13:52:Marcelle Marti RN) History of IUGR: No (09/14/2016 13:52:Marcelle Marti RN) History of Hemorrhage: No (09/14/2016 13:52:Marcelle Marti RN) History of Loss/Stillborn: No (09/14/2016 13:52:Marcelle Marti RN) History of : No (09/14/2016 13:52:Marcelle Marti RN) History of D (Rh) Sensitization: No (09/14/2016 13:52:Marcelle Marti RN) History Recurrent Loss/Stillborn: No (09/14/2016 13:52:Marcelle Marti RN) History Depression/PP Depression: No (09/14/2016 13:52:Marcelle Marti RN) History of Uterine Anomaly/STEPH: No (09/14/2016 13:52:Marcelle Marti RN) History of Infertility: No (09/14/2016 13:52:Marcelle Marti RN) History of ART Treatment: No (09/14/2016 13:52:Marcelle Marti RN) History of STEPH: No (09/14/2016 13:52:Marcelle Marti RN) Comments Obstetrical History: G1 - PPROM at 32 weeks del at 34 weeks G2- P17 shot weekly (09/14/2016 13:52:Marcelle Marti RN) MEDICAL HISTORY Med Hx Diabetes: No (09/14/2016 13:52:Marcelle Marti RN) Med Hx Hypertension: No (09/14/2016 13:52:Marcelle Marti RN) Med Hx Heart Disease: No (09/14/2016 13:52:Marcelle Marti RN) Med Hx Autoimmune Disorder: No (09/14/2016 13:52:Marcelle Marti RN) Med Hx Kidney Disease/UTI: No (09/14/2016 13:52:Marcelle Marti RN) Med Hx Neurologic/Epilepsy: No (09/14/2016 13:52:Marcelle Marti RN) Med Hx Psychiatric Disorders: No (09/14/2016 13:52:Marcelle Marti RN) Med Hx Hepatitis/Liver Disease: No (09/14/2016 13:52:Marcelle Marti RN) Med Hx Varicosities/Phlebitis: No (09/14/2016 13:52:Marcelle Marti RN) Med Hx Thyroid Dysfunction: No (09/14/2016 13:52:Marcelle Marti RN) Med Hx Trauma/Violence: No (09/14/2016 13:52:Marcelle Marti RN) Med Hx Blood Transfusion: No (09/14/2016 13:52:Marcelle Marti RN) Med Hx Pulmonary (Asthma,TB): No (09/14/2016 13:52:Marcelle Marti RN) Med Hx Breast: No (09/14/2016 13:52:Marcelle Marti RN) Med Hx PRODUCT COORDINATOR Surgery: No (09/14/2016 13:52:Marcelle Marti RN) Med Hx Hospitalization/Surgery: No (09/14/2016 13:52:Marcelle Marti RN) Med Hx Anesthetic Complications: No (09/14/2016 13:52:Marcelle Marti RN) Med Hx Abnormal Pap Smear: No (09/14/2016 13:52:Marcelle Marti RN) Other Medical Diseases: No (09/14/2016 13:52:Marcelle Marti RN) Med Hx Significant Family Hx: No (09/14/2016 13:52:Marcelle Marti RN) INFECTIOUS HISTORY Inf Hx Gonorrhea: No (09/14/2016 13:52:Marcelle Marti RN) Inf Hx Chlamydia: No (09/14/2016 13:52:Marcelle Marti RN) Inf Hx Syphilis: No (09/14/2016 13:52:Marcelle Marti RN) Inf Hx HIV/AIDS: No (09/14/2016 13:52:Marcelle Marti RN) Inf Hx Human Papilloma Virus: No (09/14/2016 13:52:Marcelle Marti RN) Inf Hx Pt/Partner Genital Herpes: No (09/14/2016 13:52:Marcelle Marti RN) Inf Hx Tuberculosis/Exposure: No (09/14/2016 13:52:Marcelle Marti RN) Inf Hx Hepatitis B,C: No (09/14/2016 13:52:Marcelle Marti RN) Inf Hx Rash or Viral Illness: No (09/14/2016 13:52:Marcelle Marti RN) GENETIC HISTORY Gen Hx Age >=35 at [place]: No (09/14/2016 13:52:Marcelle Marti RN) Gen Hx Thalassemia: No (09/14/2016 13:52:Marcelle Marti RN) Gen Hx Congenital Heart Defect: No (09/14/2016 13:52:Marcelle Marti RN) Gen Hx Neural Tube Defect: No (09/14/2016 13:52:Marcelle Marti RN) Gen Hx Down's Syndrome: No (09/14/2016 13:52:Marcelle Marti RN) Gen Hx Jaxon-Sachs: No (09/14/2016 13:52:Marcelle Marti RN) Gen Hx Tae: No (09/14/2016 13:52:Marcelle Marti RN) Gen Hx Familial Dysautonomia: No (09/14/2016 13:52:Marcelle Marti RN) Gen Hx Sickle Cell Disease/Trait: No (09/14/2016 13:52:Marcelle Marti RN) Gen Hx Hemophilia/Blood Disorder: No (09/14/2016 13:52:Marcelle Marti RN) Gen Hx Muscular Dystrophy: No (09/14/2016 13:52:Marcelle Marti RN) Gen Hx Cystic Fibrosis: No (09/14/2016 13:52:Marcelle Marti RN) Gen Hx Hunting[place] Chorea: No (09/14/2016 13:52:Marcelle Marti RN) Gen Hx Mental Retardation/Autism: No (09/14/2016 13:52:Marcelle Marti RN) Gen Hx Tested for Fragile X: No (09/14/2016 13:52:Marcelle Marti RN) Gen Hx Other Inher/Chromosomal: No (09/14/2016 13:52:Marcelle Marti RN) Gen Hx Maternal Metabolic DO: No (09/14/2016 13:52:Marcelle Marti RN) Gen Hx Pt Father or FOB Defect: No (09/14/2016 13:52:Marcelle Marti RN) Gen Hx Other Genetic History: No (09/14/2016 13:52:Marcelle Marti RN) Gen Hx Drugs/Meds since LMP: No (09/14/2016 13:52:Marcelle Marti RN)
--- NOTE | 2016-09-15 18:01 | L&D Current Admission ---
Current Admit Datetime Report Generated by CPN: 09/15/2016 18:00 ADMISSION INFORMATION Current Admit Date/Time: 09/14/2016 15:40 (09/14/2016 15:52:Marcelle Marti RN) Reason for Admission: Onset of Labor (09/14/2016 15:52:Marcelle Marti RN) Chief Complaint: Contractions; Vaginal Bleeding (09/14/2016 14:15:Marcelle Marti RN) EGA per Dates: 38.6 (09/14/2016 15:52:QS system process) Method of Arrival: Wheelchair (09/14/2016 15:52:Marcelle Marti RN) Admitted From: Home (09/14/2016 15:52:Marcelle Marti RN) Reason for Induction: Not Applicable (09/14/2016 15:52:Marcelle Marti RN) Records Available: No (09/14/2016 15:52:Marcelle Marti RN) General Admission Information: Reviewed (09/14/2016 15:52:Marcelle Marti RN) BELONGINGS/ADVANCED DIRECTIVES Other Belongings: see signed belongings consent (09/14/2016 15:52:Marcelle Marti RN) Disposition of Belongings: Kept with Patient (09/14/2016 15:52:Marcelle Marti RN) Advance Direct for Healthcare: No, and Wants No Information (09/14/2016 15:52:Marcelle Marti RN) Durable Power of Dials Supervisor: No (09/14/2016 15:52:Marcelle Marti RN) Living Will: No (09/14/2016 15:52:Marcelle Marti RN) Organ Donor: No (09/14/2016 15:52:Marcelle Marti RN) Pt Rights Information Given: Yes (09/14/2016 15:52:Marcelle Marti RN) Pt Understands Pt Rights: Yes (09/14/2016 15:52:Marcelle Marti RN) LEARNING ASSESSMENT Knowledge Level: Understands L_D Process; Understands Care Activities; Had Pre-Hospital Education; Understands Diagnosis (09/14/2016 15:52:Marcelle Marti RN) Barriers to Learning: None (09/14/2016 15:52:Marcelle Marti RN) Learning Readiness: Motivated (09/14/2016 15:52:Marcelle Marti RN) Learns Best By: 1 to 1 Instruction (09/14/2016 15:52:Marcelle Marti RN) Learning Needs: Labor and Delivery Process; Pain Management; Symptoms to Report; Treatment Plan; Medication; Diagnosis; Nutrition; Equipment; Care; Community Resources (09/14/2016 15:52:Marcelle Marti RN) DOMESTIC VIOLANCE SCREENING Dom Viol Threatened/Hurt: No (09/14/2016 15:52:Marcelle Marti RN) Hx of Abuse/Neglect past 2yrs: No (09/14/2016 15:52:Marcelle Marti RN) Feel Unsafe Going Home: No (09/14/2016 15:52:Marcelle Marti RN) Addt'l Observ Indicating Abuse: No (09/14/2016 15:52:Marcelle Marti RN) Reason Unable to Complete Screen: N/A, Screen Completed (09/14/2016 15:52:Marcelle Marti RN) Considered Personal Harm/Suicide: No (09/14/2016 15:52:Marcelle Marti RN) NUTRITIONAL/FUNCTIONAL SCREENING Problem with Appetite >5 Days: No (09/14/2016 15:52:Marcelle Marti RN) Chew/Swallow Difficulties: No (09/14/2016 15:52:Marcelle Marti RN) Inappropriate Wt Gain/Loss: No (09/14/2016 15:52:Marcelle Marti RN) Presence Skin Breakdown/Ulcer: No (09/14/2016 15:52:Marcelle Marti RN) Special Diet: No (09/14/2016 15:52:Marcelle Marti RN) Pt Requests Food Service Representative Visit: No (09/14/2016 15:52:Marcelle Marti RN) Hx of Any of the Following?: N/A (09/14/2016 15:52:Marcelle Marti RN) New Diagnosis of: N/A (09/14/2016 15:52:Marcelle Marti RN) Requires Assist w/Ambulation: No (09/14/2016 15:52:Marcelle Marti RN) Uses Assist Device to Ambulate: No (09/14/2016 15:52:Marcelle Marti RN) Pt Requires Help w/ADL's: No (09/14/2016 15:52:Marcelle Marti RN)
[2016-09-16] MEDS: IBUPROFEN 800 MG TABLET PO SCH (05:13)
--- NOTE | 2016-09-16 06:01 | L&D Current Admission ---
Current Admit Datetime Report Generated by CPN: 09/16/2016 06:00 ADMISSION INFORMATION Current Admit Date/Time: 09/14/2016 15:40 (09/14/2016 15:52:Marcelle Marti RN) Reason for Admission: Onset of Labor (09/14/2016 15:52:Marcelle Marti RN) Chief Complaint: Contractions; Vaginal Bleeding (09/14/2016 14:15:Marcelle Marti RN) EGA per Dates: 38.6 (09/14/2016 15:52:QS system process) Method of Arrival: Wheelchair (09/14/2016 15:52:Marcelle Marti RN) Admitted From: Home (09/14/2016 15:52:Marcelle Marti RN) Reason for Induction: Not Applicable (09/14/2016 15:52:Marcelle Marti RN) Records Available: No (09/14/2016 15:52:Marcelle Marti RN) General Admission Information: Reviewed (09/14/2016 15:52:Marcelle Marti RN) BELONGINGS/ADVANCED DIRECTIVES Other Belongings: see signed belongings consent (09/14/2016 15:52:Marcelle Marti RN) Disposition of Belongings: Kept with Patient (09/14/2016 15:52:Marcelle Marti RN) Advance Direct for Healthcare: No, and Wants No Information (09/14/2016 15:52:Marcelle Marti RN) Durable Power of Mechanic And Welder: No (09/14/2016 15:52:Marcelle Marti RN) Living Will: No (09/14/2016 15:52:Marcelle Marti RN) Organ Donor: No (09/14/2016 15:52:Marcelle Marti RN) Pt Rights Information Given: Yes (09/14/2016 15:52:Marcelle Marti RN) Pt Understands Pt Rights: Yes (09/14/2016 15:52:Marcelle Marti RN) LEARNING ASSESSMENT Knowledge Level: Understands L_D Process; Understands Care Activities; Had Pre-Hospital Education; Understands Diagnosis (09/14/2016 15:52:Marcelle Marti RN) Barriers to Learning: None (09/14/2016 15:52:Marcelle Marti RN) Learning Readiness: Motivated (09/14/2016 15:52:Marcelle Marti RN) Learns Best By: 1 to 1 Instruction (09/14/2016 15:52:Marcelle Marti RN) Learning Needs: Labor and Delivery Process; Pain Management; Symptoms to Report; Treatment Plan; Medication; Diagnosis; Nutrition; Equipment; Care; Community Resources (09/14/2016 15:52:Marcelle Marti RN) DOMESTIC VIOLANCE SCREENING Dom Viol Threatened/Hurt: No (09/14/2016 15:52:Marcelle Marti RN) Hx of Abuse/Neglect past 2yrs: No (09/14/2016 15:52:Marcelle Marti RN) Feel Unsafe Going Home: No (09/14/2016 15:52:Marcelle Marti RN) Addt'l Observ Indicating Abuse: No (09/14/2016 15:52:Marcelle Marti RN) Reason Unable to Complete Screen: N/A, Screen Completed (09/14/2016 15:52:Marcelle Marti RN) Considered Personal Harm/Suicide: No (09/14/2016 15:52:Marcelle Marti RN) NUTRITIONAL/FUNCTIONAL SCREENING Problem with Appetite >5 Days: No (09/14/2016 15:52:Marcelle Marti RN) Chew/Swallow Difficulties: No (09/14/2016 15:52:Marcelle Marti RN) Inappropriate Wt Gain/Loss: No (09/14/2016 15:52:Marcelle Marti RN) Presence Skin Breakdown/Ulcer: No (09/14/2016 15:52:Marcelle Marti RN) Special Diet: No (09/14/2016 15:52:Marcelle Marti RN) Pt Requests Test Boring Crew Chief Visit: No (09/14/2016 15:52:Marcelle Marti RN) Hx of Any of the Following?: N/A (09/14/2016 15:52:Marcelle Marti RN) New Diagnosis of: N/A (09/14/2016 15:52:Marcelle Marti RN) Requires Assist w/Ambulation: No (09/14/2016 15:52:Marcelle Marti RN) Uses Assist Device to Ambulate: No (09/14/2016 15:52:Marcelle Marti RN) Pt Requires Help w/ADL's: No (09/14/2016 15:52:Marcelle Marti RN)
--- NOTE | 2016-09-16 06:01 | L&D General Admission ---
General Admit Datetime Report Generated by CPN: 09/16/2016 06:00 INFORMATION Patient Age: 20 (08/31/2016 14:00:QS system process) EDC: 09/22/2016 00:00 (09/14/2016 13:52:OLMAN Correa) : 2 (09/14/2016 13:52:Lor Knight RN) Para: 1 (09/14/2016 13:52:Lor Knight RN) Term: 0 (09/14/2016 13:52:Lor Knight RN) : 1 (09/14/2016 13:52:Lor Knight RN) Spontaneous Abortions: 0 (09/14/2016 13:52:Lor Knight RN) Induced Abortions: 0 (09/14/2016 13:52:Lor Knight RN) Livin (09/14/2016 13:52:Lor Knight RN) Cesareans: 0 (09/14/2016 13:52:Lor Knight RN) VBACs: 0 (09/14/2016 13:52:Lor Knight RN) Ectopic: 0 (09/14/2016 13:52:Lor Knight RN) Multiple Births: 0 (09/14/2016 13:52:Lor Knight RN) Baby, Number in Womb: 1 (09/14/2016 13:52:Lor Knight RN) CARE Primary Clinical Fellow: [facility] (09/14/2016 13:52:Lor Knight RN) Adequate Care: Yes (09/14/2016 13:52:Marcelle Marti RN) Height (in): 65 (09/14/2016 13:48:QS system process) ALLERGIES Medication Allergy: No (09/14/2016 13:52:Marcelle Marti RN) Medication Allergies: No Known Allergies (09/14/2016) (09/14/2016 13:48:QS system process) Latex Allergy: No Latex Allergies (09/14/2016 13:52:Marcelle Marti RN) COMMUNICATION Primary Language: Arabic (09/14/2016 13:52:Lor Knight RN) Medical Tx Preferred Language: Arabic (09/14/2016 13:52:Lor Knight RN) Communication Barrier(s): None (09/14/2016 13:52:Lor Knight RN) DEMOGRAPHICS Address: [address] [place] [id number] (08/31/2016 14:00:QS system process) Zipcode: [address] (08/31/2016 14:00:QS system process) Home (08/31/2016 14:00:QS system process) Work (09/14/2016 13:38:QS system process) SSN: [id number] (08/31/2016 14:00:QS system process) Next of Kin Name: DAPHNEY GREEN (08/31/2016 14:00:QS system process) Next of Kin (09/14/2016 13:38:QS system process) Next of Kin Relationship: OR (08/31/2016 14:00:QS system process) Date of : 1995 (08/31/2016 14:00:QS system process) Marital Status: Single (08/31/2016 14:00:QS system process) Sex: Female (08/31/2016 14:00:QS system process) Race: (08/31/2016 14:00:QS system process) Ethnicity: Non- or (08/31/2016 14:00:QS system process) Church: None (08/31/2016 14:00:QS system process) DRUG AND ALCOHOL USE Alcohol: No (09/14/2016 13:52:Marcelle Marti RN) Cigarettes: Never Smoker. [id number] (09/14/2016 13:52:Marcelle Marti RN) Marijuana: No (09/14/2016 13:52:Marcelle Marti RN) Cocaine: No (09/14/2016 13:52:Marcelle Marti RN) Other Illicit Drugs: No (09/14/2016 13:52:Marcelle Marti RN) VACCINE HISTORY Influenza Vaccine: No (09/14/2016 13:52:Marcelle Marti RN) Pole Classifier: [facility] (09/14/2016 13:52:Marcelle Marti RN) Feeding Preference: Breast (09/14/2016 13:52:Marcelle Marti RN) Benefit of Breast Feed Discussed: Yes (09/14/2016 13:52:Marcelle Marti RN) Circumcision: N/A (09/14/2016 13:52:Marcelle Marti RN) Classes Attended: No (09/14/2016 13:52:Marcelle Marti RN) Tubal Ligation: No (09/14/2016 13:52:Marcelle Marti RN) Tubal Authorization Signed: N/A (09/14/2016 13:52:Marcelle Marti RN) Consent: N/A (09/14/2016 13:52:Marcelle Marti RN) Consent Signed: N/A (09/14/2016 13:52:Marcelle Marti RN) Other Pain Management Plans: unsure (09/14/2016 13:52:Marcelle Marti RN) Plans for Labor and Delivery: None (09/14/2016 13:52:Marcelle Marti RN) Support Person: Daphney Mancia (09/14/2016 13:52:Marcelle Marti RN) Support Person Relationship: Significant Other (09/14/2016 13:52:Marcelle Marti RN) Cultural/Spritual Practice: N/A (09/14/2016 13:52:Marcelle Marti RN) Spir/Cult Dietary Needs: N/A (09/14/2016 13:52:Marcelle Marti RN) LIVING SITUATION/DISCHARGE PLAN Living Arrangements: House (09/14/2016 13:52:Marcelle Marti RN) Adequate Access to:: Electric; Heat; Refrigeration; Plumbing/Running water; Phone; Transportation (09/14/2016 13:52:Marcelle Marti RN) WIC Program: No (09/14/2016 13:52:Marcelle Marti RN) Discharge Sightseeing Guide Person: Daphney (09/14/2016 13:52:Marcelle Marti RN) Person to Help after Discharge: Daphney (09/14/2016 13:52:Marcelle Marti RN) Currently Using Commun Resources: No (09/14/2016 13:52:Marcelle Marti RN) Outside Agency/Quill Worker: No (09/14/2016 13:52:Marcelle Marti RN) Car Seat for Discharge: Yes (09/14/2016 13:52:Marcelle Marti RN) Adoption Requested: No (09/14/2016 13:52:Marcelle Marti RN) Pt Contact w/infant Post : N/A (09/14/2016 13:52:Marcelle Marti RN) LABS Blood Type: A Positive (09/14/2016 13:52:Dat Franco RN) Antibody Screen: Negative (09/14/2016 13:52:Dat Franco RN) Hemoglobin: 11.8 L (09/15/2016 07:36:QS system process) Hematocrit: 35.1 L (09/15/2016 07:36:QS system process) MCV: 95 (09/15/2016 07:36:QS system process) Group Beta Strep: neg (09/14/2016 13:52:Marcelle Marti RN) Gonorrhea: Negative (09/14/2016 13:52:Marcelle Marti RN) Chlamydia: Negative (09/14/2016 13:52:Marcelle Marti RN) RPR/VDRL: Nonreactive (09/14/2016 13:52:Marcelle Marti RN) HIV Exposure Test: neg (09/14/2016 13:52:Marcelle Marti RN) Hepatitis B: Negative (09/14/2016 13:52:Dat Franco RN) Rubella: Immune (09/14/2016 13:52:Dat Franco RN) Varicella: Negative (09/14/2016 13:52:Dat Franco RN) OB/PREVIOUS HISTORY History of Previous : No (09/14/2016 13:52:Marcelle Marti RN) History of Gestational Diabetes: No (09/14/2016 13:52:Marcelle Marti RN) History of PIH: No (09/14/2016 13:52:Marcelle Marti RN) History of Incompetent Cervix: No (09/14/2016 13:52:Marcelle Marti RN) History of Placenta Previa/Abrup: No (09/14/2016 13:52:Marcelle Marti RN) History of Macrosomia: No (09/14/2016 13:52:Marcelle Marti RN) History of IUGR: No (09/14/2016 13:52:Marcelle Marti RN) History of Hemorrhage: No (09/14/2016 13:52:Marcelle Marti RN) History of Loss/Stillborn: No (09/14/2016 13:52:Marcelle Marti RN) History of : No (09/14/2016 13:52:Marcelle Marti RN) History of D (Rh) Sensitization: No (09/14/2016 13:52:Marcelle Marti RN) History Recurrent Loss/Stillborn: No (09/14/2016 13:52:Marcelle Marti RN) History Depression/PP Depression: No (09/14/2016 13:52:Marcelle Marti RN) History of Uterine Anomaly/STEPH: No (09/14/2016 13:52:Marcelle Marti RN) History of Infertility: No (09/14/2016 13:52:Marcelle Marti RN) History of ART Treatment: No (09/14/2016 13:52:Marcelle Marti RN) History of STEPH: No (09/14/2016 13:52:Marcelle Marti RN) Comments Obstetrical History: G1 - PPROM at 32 weeks del at 34 weeks G2- P17 shot weekly (09/14/2016 13:52:Marcelle Marti RN) MEDICAL HISTORY Med Hx Diabetes: No (09/14/2016 13:52:Marcelle Marti RN) Med Hx Hypertension: No (09/14/2016 13:52:Marcelle Marti RN) Med Hx Heart Disease: No (09/14/2016 13:52:Marcelle Marti RN) Med Hx Autoimmune Disorder: No (09/14/2016 13:52:Marcelle Marti RN) Med Hx Kidney Disease/UTI: No (09/14/2016 13:52:Marcelle Marti RN) Med Hx Neurologic/Epilepsy: No (09/14/2016 13:52:Marcelle Marti RN) Med Hx Psychiatric Disorders: No (09/14/2016 13:52:Marcelle Marti RN) Med Hx Hepatitis/Liver Disease: No (09/14/2016 13:52:Marcelle Marti RN) Med Hx Varicosities/Phlebitis: No (09/14/2016 13:52:Marcelle Marti RN) Med Hx Thyroid Dysfunction: No (09/14/2016 13:52:Marcelle Marti RN) Med Hx Trauma/Violence: No (09/14/2016 13:52:Marcelle Marti RN) Med Hx Blood Transfusion: No (09/14/2016 13:52:Marcelle Marti RN) Med Hx Pulmonary (Asthma,TB): No (09/14/2016 13:52:Marcelle Marti RN) Med Hx Breast: No (09/14/2016 13:52:Marcelle Marti RN) Med Hx BEHAVIORAL GENETICIST Surgery: No (09/14/2016 13:52:Marcelle Marti RN) Med Hx Hospitalization/Surgery: No (09/14/2016 13:52:Marcelle Marti RN) Med Hx Anesthetic Complications: No (09/14/2016 13:52:Marcelle Marti RN) Med Hx Abnormal Pap Smear: No (09/14/2016 13:52:Marcelle Marti RN) Other Medical Diseases: No (09/14/2016 13:52:Marcelle Marti RN) Med Hx Significant Family Hx: No (09/14/2016 13:52:Marcelle Marti RN) INFECTIOUS HISTORY Inf Hx Gonorrhea: No (09/14/2016 13:52:Marcelle Marti RN) Inf Hx Chlamydia: No (09/14/2016 13:52:Marcelle Marti RN) Inf Hx Syphilis: No (09/14/2016 13:52:Marcelle Marti RN) Inf Hx HIV/AIDS: No (09/14/2016 13:52:Marcelle Marti RN) Inf Hx Human Papilloma Virus: No (09/14/2016 13:52:Marcelle Marti RN) Inf Hx Pt/Partner Genital Herpes: No (09/14/2016 13:52:Marcelle Marti RN) Inf Hx Tuberculosis/Exposure: No (09/14/2016 13:52:Marcelle Marti RN) Inf Hx Hepatitis B,C: No (09/14/2016 13:52:Marcelle Marti RN) Inf Hx Rash or Viral Illness: No (09/14/2016 13:52:Marcelle Marti RN) GENETIC HISTORY Gen Hx Age >=35 at [place]: No (09/14/2016 13:52:Marcelle Marti RN) Gen Hx Thalassemia: No (09/14/2016 13:52:Marcelle Marti RN) Gen Hx Congenital Heart Defect: No (09/14/2016 13:52:Marcelle Marti RN) Gen Hx Neural Tube Defect: No (09/14/2016 13:52:Marcelle Marti RN) Gen Hx Down's Syndrome: No (09/14/2016 13:52:Marcelle Marti RN) Gen Hx Jaxon-Sachs: No (09/14/2016 13:52:Marcelle Marti RN) Gen Hx Tae: No (09/14/2016 13:52:Marcelle Marti RN) Gen Hx Familial Dysautonomia: No (09/14/2016 13:52:Marcelle Marti RN) Gen Hx Sickle Cell Disease/Trait: No (09/14/2016 13:52:Marcelle Marti RN) Gen Hx Hemophilia/Blood Disorder: No (09/14/2016 13:52:Marcelle Marti RN) Gen Hx Muscular Dystrophy: No (09/14/2016 13:52:Marcelle Marti RN) Gen Hx Cystic Fibrosis: No (09/14/2016 13:52:Marcelle Marti RN) Gen Hx Huntingtons Chorea: No (09/14/2016 13:52:Marcelle Marti RN) Gen Hx Mental Retardation/Autism: No (09/14/2016 13:52:Marcelle Marti RN) Gen Hx Tested for Fragile X: No (09/14/2016 13:52:Marcelle Marti RN) Gen Hx Other Inher/Chromosomal: No (09/14/2016 13:52:Marcelle Marti RN) Gen Hx Maternal Metabolic DO: No (09/14/2016 13:52:Marcelle Marti RN) Gen Hx Pt Father or FOB Defect: No (09/14/2016 13:52:Marcelle Marti RN) Gen Hx Other Genetic History: No (09/14/2016 13:52:Marcelle Marti RN) Gen Hx Drugs/Meds since LMP: No (09/14/2016 13:52:Marcelle Marti RN)
--- NOTE | 2016-09-16 06:16 | L&D Care Plan ---
LD CARE PLANS Datetime Report Generated by CPN: 09/16/2016 06:15 Datetime: 09/14/2016 15:36 Pain State: Actual (Eunice Murphy RN) Related To: Labor and Delivery Process; Treatment and Procedures (Eunice Murphy RN) Goal(s): Patients Pain will be Assessed and Managed; Patient will Verbalize Adequate Relief of Pain or the Ability to [place] with Current Pain (Eunice Murphy RN) Interventions: Assess Pain Severity on Scale of 0 (None) to 5 (Severe); Assess Type, Location and Intensity of Pain Each Time Client Reports Discomfort and Notify Provider if Unusal Pain Develops; Encourage Proper Breathing and Relaxation Techniques; Offer Alternatives Such as Repositioning, Calm Environment, Massages, Diversional Activities, Ice Pack, Splinting, and Ambulation; Administer Analgesics as Ordered; Assist with Epidural Placement as Appropriate; Evaluate Therapeutic Effectiveness of Medication and Treatments (Eunice Murphy RN) Outcome: Patient will Report Absence or Relief of Pain Consistent with Established Pain Goal (Eunice Murphy RN) Status: Ongoing (Eunice Murphy RN) Outcome: Patient will have a Decrease in Signs and Symptoms of Discomfort (Eunice Murphy RN) Status: Ongoing (Eunice Murphy RN) Outcome: Pain will be Controlled During Procedures (Eunice Murphy RN) Status: Ongoing (Eunice Murphy RN) Anxiety State: Not Applicable (Eunice Murphy, ) Knowledge Deficit State: Not Applicable (Eunice Murphy, JENNIFER) Infection State: Risk For (Eunice Murphy RN) Related To: Invasive Procedures (Eunice Murphy RN) Goal(s): The Patient will be Free of Infection, Vital Signs Stable and Lab Work within Normal Parameters (Eunice Murphy RN) Interventions: Instruct and Reinforce Proper Handwashing, Hygiene, and Care Techniques to Patient and Family; Monitor Vital Signs; Monitor Patient for the Following Signs of Infection: Fever, Abdominal Tenderness, Unusual Discharge; Monitor Aminiotic Fluid, Urine and Lochia for Color and Odor; Observe Wounds, Incisions and Invasive Line Sites for Redness, Drainage and Edema; Assess IV Sites per Hospital Policy; Monitor Lab and Test Results and Notify Provider of Abnormal Findings; Assess Nutritional Status and Promote Good Nutrition (Eunice Murphy RN) Outcome: Patient will Remain Free of Infection (Eunice Murphy RN) Status: Ongoing (Eunice Murphy RN) Outcome: Infection will be Recognized Early to Allow for Prompt Treatment (Eunice Murphy RN) Status: Ongoing (Eunice Murphy RN) Outcome: Patient will have Vital Signs Within Expected Range (Eunice Murphy RN) Status: Ongoing (Eunice Murphy RN) Fluid Volume State: Not Applicable (Eunice Vitrano, RN) Injury State: Risk For (Eunice Murphy RN) Related To: Labor and Delivery Process (Eunice Murphy RN) Goal(s): Patient will Remain Free from Injury (Eunice Murphy RN) Interventions: Monitoring as per Hospital Protocol; Assess Neurological Status; Perform Risk Assessment of Patients with Induction and ; Perform Fall Risk Assessment and Prevention per Hospital Protocol; Perform DVT Risk Assessment and Prophylaxis per Hospital Protocol; Ensure that Oxygen, Suction, and Resuscitation Medications and Equipment are Readily Available; Confirm Patient ID Prior to Procedure(s) and Medication Administration per Hospital Policy (Eunice Murphy, JENNIFER) Outcome: Successful Fall Risk Prevention (Eunice Murphy RN) Status: Ongoing (Eunice Katherine, RN) Outcome: Patient will Deliver Infant without Adverse Sequela (Eunice Katherine, RN) Status: Ongoing (Eunice Vitrjenni, RN) Outcome: Patient's Neurological Status will Remain Stable (Eunice Vitrano, RN) Status: Ongoing (Eunice Vitrano, RN) Impaired Skin Integrity State: Risk For (Eunice Vitrano, RN) Related To: Vaginal Delivery (Eunice Murphy RN) Goal(s): Patient will Maintain Optimal Skin Integrity, Free of Breakdown, Injury or Infection (Eunice Murphy RN) Interventions: Complete Screening for Pressure Ulcer Risk and Initiate Protocol per Hospital Policy; Monitor Site of Skin Impairment for Color Changes, Redness, Swelling, Warmth, Pain or Other Signs of Infection; Encourage and Assist with Position Changes; Monitor Patient's Mobility Status; Provide Adequate Nutrition and Fluids; Teach Patient Appropriate Hygienic Care; Teach Patient/Family Skin Care Management (Eunice Murphy RN) Outcome: Patient will not have Evidence of Injury Such as Skin Breakdown, Scrapes, Cuts, or Bruising (Eunice Murphy RN) Status: Ongoing (Eunice Murphy RN) Outcome: Patient will Report Any Altered Sensation or Pain at Site of Skin Impairment (Eunice Murphy RN) Status: Ongoing (Eunice Murphy RN) Outcome: Patients Incisions and Wounds will be without Signs or Symptoms of Infection (Eunice Murphy RN) Status: Ongoing (Eunice Murphy RN) Outcome: Patient will Demonstrate Understanding of Plan to Heal Skin and Prevent Reinjury and Verbalize Risk Factors (Eunice Murphy RN) Status: Ongoing (Eunice Murphy RN) Parenting Impaired State: Not Applicable (Eunice Murphy RN) Nutrition State: Not Applicable (Eunice Vitrano, RN) Grieving State: Not Applicable (Eunice Vitrano, RN) Additional Care Plan State: Not Applicable (Eunice Vitrano, RN) Datetime: 09/14/2016 15:34 Pain State: Actual (Eunice Murphy RN) Related To: Labor and Delivery Process; Treatment and Procedures (Eunice Murphy RN) Goal(s): Patients Pain will be Assessed and Managed; Patient will Verbalize Adequate Relief of Pain or the Ability to [place] with Current Pain (Eunice Murphy RN) Interventions: Assess Pain Severity on Scale of 0 (None) to 5 (Severe); Assess Type, Location and Intensity of Pain Each Time Client Reports Discomfort and Notify Provider if Unusal Pain Develops; Encourage Proper Breathing and Relaxation Techniques; Offer Alternatives Such as Repositioning, Calm Environment, Massages, Diversional Activities, Ice Pack, Splinting, and Ambulation; Administer Analgesics as Ordered; Assist with Epidural Placement as Appropriate; Evaluate Therapeutic Effectiveness of Medication and Treatments (Eunice Murphy RN) Outcome: Patient will Report Absence or Relief of Pain Consistent with Established Pain Goal (Eunice Murphy RN) Status: Ongoing (Eunice Murphy RN) Outcome: Patient will have a Decrease in Signs and Symptoms of Discomfort (Eunice Murphy RN) Status: Ongoing (Eunice Murphy RN) Outcome: Pain will be Controlled During Procedures (Eunice Murphy RN) Status: Ongoing (Eunice Murphy RN) Anxiety State: Not Applicable (Eunice Murphy RN) Knowledge Deficit State: Not Applicable (Eunice Murphy RN) Infection State: Risk For (Eunice Murphy RN) Related To: Invasive Procedures (Eunice Murphy RN) Goal(s): The Patient will be Free of Infection, Vital Signs Stable and Lab Work within Normal Parameters (Eunice Murphy RN) Interventions: Instruct and Reinforce Proper Handwashing, Hygiene, and Care Techniques to Patient and Family; Monitor Vital Signs; Monitor Patient for the Following Signs of Infection: Fever, Abdominal Tenderness, Unusual Discharge; Monitor Aminiotic Fluid, Urine and Lochia for Color and Odor; Observe Wounds, Incisions and Invasive Line Sites for Redness, Drainage and Edema; Assess IV Sites per Hospital Policy; Monitor Lab and Test Results and Notify Provider of Abnormal Findings; Assess Nutritional Status and Promote Good Nutrition (Eunice Murphy RN) Outcome: Patient will Remain Free of Infection (Eunice Murphy RN) Status: Ongoing (Eunice Murphy RN) Outcome: Infection will be Recognized Early to Allow for Prompt Treatment (Eunice Murphy RN) Status: Ongoing (Eunice Murphy RN) Outcome: Patient will have Vital Signs Within Expected Range (Eunice Murphy RN) Status: Ongoing (Eunice Murphy RN) Fluid Volume State: Not Applicable (Eunice Murphy RN) Injury State: Risk For (Eunice Murphy RN) Related To: Labor and Delivery Process (Eunice Murphy RN) Goal(s): Patient will Remain Free from Injury (Eunice Murphy RN) Interventions: Monitoring as per Hospital Protocol; Assess Neurological Status; Perform Risk Assessment of Patients with Induction and ; Perform Fall Risk Assessment and Prevention per Hospital Protocol; Perform DVT Risk Assessment and Prophylaxis per Hospital Protocol; Ensure that Oxygen, Suction, and Resuscitation Medications and Equipment are Readily Available; Confirm Patient ID Prior to Procedure(s) and Medication Administration per Hospital Policy (Eunice Murphy RN) Outcome: Successful Fall Risk Prevention (Eunice Murphy RN) Status: Ongoing (Eunice Murphy RN) Outcome: Patient will Deliver without Adverse Sequela (Eunice Murphy RN) Status: Ongoing (Eunice Murphy RN) Outcome: Patient's Neurological Status will Remain Stable (Eunice Murphy RN) Status: Ongoing (Eunice Murphy RN) Impaired Skin Integrity State: Risk For (Eunice Murphy RN) Related To: Vaginal Delivery (Eunice Murphy RN) Goal(s): Patient will Maintain Optimal Skin Integrity, Free of Breakdown, Injury or Infection (Eunice Murphy RN) Interventions: Complete Screening for Pressure Ulcer Risk and Initiate Protocol per Hospital Policy; Monitor Site of Skin Impairment for Color Changes, Redness, Swelling, Warmth, Pain or Other Signs of Infection; Encourage and Assist with Position Changes; Monitor Patient's Mobility Status; Provide Adequate Nutrition and Fluids; Teach Patient Appropriate Hygienic Care; Teach Patient/Family Skin Care Management (Eunice Murphy RN) Outcome: Patient will not have Evidence of Injury Such as Skin Breakdown, Scrapes, Cuts, or Bruising (Eunice Murphy RN) Status: Ongoing (Eunice Murphy RN) Outcome: Patient will Report Any Altered Sensation or Pain at Site of Skin Impairment (Eunice Murphy RN) Status: Ongoing (Eunice Murphy RN) Outcome: Patients Incisions and Wounds will be without Signs or Symptoms of Infection (Eunice Murphy RN) Status: Ongoing (Eunice Murphy RN) Outcome: Patient will Demonstrate Understanding of Plan to Heal Skin and Prevent Reinjury and Verbalize Risk Factors (Eunice Vitrano, RN) Status: Ongoing (Eunice Vitrano, RN) Parenting Impaired State: Not Applicable (Eunice Vitrano, RN) Nutrition State: Not Applicable (Eunice Vitrano, RN) Grieving State: Not Applicable (Eunice Vitrano, RN) Additional Care Plan State: Not Applicable Sammie Murphy RN)
[2016-09-16 08:23] VITALS: BP 107/57
--- NOTE | 2016-09-16 09:46 | PDOC PROGRESS REPORT ---
Subjective-OB Subjective: Post Delivery Day: 20 year old. Denies any needs at this time. Ready to go home. Physical Exam (OB) Vital Signs: Temp Pulse Resp BP Pulse Ox 98.1 F 71 16 107/57 L 99 09/16/16 08:34 09/16/16 08:34 09/16/16 08:34 09/16/16 07:49 09/16/16 08:34 Intake & Output 09/15/16 09/16/16 09/17/16 06:59 06:59 06:59 Weight 66.5 kg - Dressing Removed: No - Lochia Lochia Amount: Small 10-25 ml Lochia Color: Rubra/Red - Abdomen Description: Soft, Round Hernia Present: No Bowel Sounds: Normoactive Flatus Presence: Present Stool: Yes Fundal Description: Firm, Midline Fundal Height: u/u - u/2 Objective-Diagnostic Laboratory: 09/15/16 07:36 Assessment and Plan(PN) - Time Spent with Patient Medications reviewed and adjusted accordingly: Yes - Disposition Anticipated Discharge: Home
--- NOTE | 2016-09-16 09:50 | PDOC DISCHARGE SUMMARY ---
Final Diagnosis Discharge Date: 09/16/16 - Final Diagnosis (1) Chlamydia infection affecting in third trimester, antepartum Is this a current diagnosis for this admission?: Yes (2) Close interval pregnancies Is this a current diagnosis for this admission?: Yes (3) Partial abruption Is this a current diagnosis for this admission?: Yes (4) Delivery normal Is this a current diagnosis for this admission?: Yes (5) PPROM Is this a current diagnosis for this admission?: Yes (6) Is this a current diagnosis for this admission?: Yes Discharge Data - Discharge Medication Home Medications: Ferrous Sulfate [Feosol 325 mg Tablet] 325 mg PO DAILY 08/30/15 Vit No.129/Iron/FA [ Tablet] 1 tab PO DAILY 08/30/15 Gestational Age: 38.6 wks Reason(s) for Admission: Onset of Labor Procedures: Ultrasound Intrapartum Procedure(s): Spontaneous Vaginal Delivery - Data Baby 1 Female at 1 minute: 9 at 5 minutes: 9 Weight: 3.005 kg Home with Mother: Yes Complications: No - Diagnosis Test Laboratory: Temp Pulse Resp BP Pulse Ox 98.1 F 71 16 107/57 L 99 09/16/16 08:34 09/16/16 08:34 09/16/16 08:34 09/16/16 07:49 09/16/16 08:34 09/14/16 09/14/16 09/15/16 13:46 16:00 07:36 RBC 4.10 3.72 Hgb 13.0 11.8 L Hct 39.0 35.1 L Urine Opiates Screen NEGATIVE - Discharge information/Instructions Discharge Activity: Activity As Tolerated, Balance Activity w/Rest, Pelvic Rest , Slowly Increase Activity, No tub bath Discharge Diet: Regular Disposition: HOME, SELF-CARE Follow up with: [facility] in: 4, Weeks
[2016-09-16] MEDS: SENNOSIDES/DOCUSATE 8.6-50 MG 1 EACH TABLET PO SCH (09:55)
[2016-09-16] MEDS: FERROUS SULFATE 325 MG TABLET PO SCH (09:55)
[2016-09-16] MEDS: DOCUSATE SODIUM 100 MG CAPSULE PO SCH (09:56)
[2016-09-16] MEDS: PRENATAL VITAMIN W-O CA NO5/FE FUMARATE/FA CAPSULE PO SCH (09:56)
== END 2016-09-16 12:21 | disposition home or self-care (01) | DRG 774 ==
LOC: LC 13:36 → LR 15:28 → 2S 21:44
PROVIDERS: ADMIT Specialist; ATTEND Specialist
PROC: 10E0XZZ Delivery of Products of Conception, External Approach (ICD-10-PCS; principal; 2016-09-14)
PROC: 10907ZC Drainage of Amniotic Fluid, Therapeutic from Products of Conception, Via Natural or Artificial Opening (ICD-10-PCS; 2016-09-14)
PROC: 4A1HXCZ Monitoring of Products of Conception, Cardiac Rate, External Approach (ICD-10-PCS; 2016-09-14)
PROC: 3E0234Z Introduction of Serum, Toxoid and Vaccine into Muscle, Percutaneous Approach (ICD-10-PCS; 2016-09-16)
DX: O45.93 Premature separation of placenta, unspecified, third trimester (principal); O98.32 Other infections with a predominantly sexual mode of transmission complicating childbirth; O99.02 Anemia complicating childbirth; O69.1XX0 Labor and delivery complicated by cord around neck, with compression, not applicable or unspecified; D64.9 Anemia, unspecified; O76 Abnormality in fetal heart rate and rhythm complicating labor and delivery; A56.8 Sexually transmitted chlamydial infection of other sites; Z3A.38 38 weeks gestation of pregnancy; Z37.0 Single live birth; Z23 Encounter for immunization
CPT/HCPCS: 36415; 80307; 81005; 85025; 85027; 86592; 86850; 86900; 86901; 88307; 90686; 90715; 94760; J2590; J3490